=== PATIENT | male | born 1995 | race Caucasian/White ===

== ENCOUNTER 2019-06-11 15:56 | Emergency (ER) | payer OTHER, BC ==
[~2019-06-11] VITALS: Ht 170.2 cm; Wt 66.4 kg
[2019-06-11 16:02] VITALS: BP 119/69
[2019-06-11] MEDS ORDERED: LIDODERM 5% PATC1 EA TP (16:55)
[2019-06-11 17:15] VITALS: PULSE 69; TEMP 98.3
== END 2019-06-11 17:14 | disposition home or self-care (01) ==
LOC: COL.ER 15:56
DX: S40.012A Contusion of left shoulder, initial encounter (principal); Z88.0 Allergy status to penicillin; V49.40XA Driver injured in collision with unspecified motor vehicles in traffic accident, initial encounter